=== PATIENT | male | born 1995 | race Caucasian/White ===

== ENCOUNTER 2020-04-17 15:07 | Emergency (ER) | payer MEDICAID ==
[~2020-04-17] VITALS: Ht 167.6 cm; Wt 65.9 kg
[2020-04-17 15:35] VITALS: BP 130/73
[2020-04-17] MEDS ORDERED: IBUP-1984 PO (16:10)
[2020-04-17] MEDS ORDERED: ketorolac tromethamine 15mg/ml inj. IM ONE (16:10)
== END 2020-04-17 18:32 | disposition home or self-care (01) ==
LOC: ER 15:08
DX: M25.562 Pain in left knee (principal); F17.200 Nicotine dependence, unspecified, uncomplicated; Z72.89 Other problems related to lifestyle; Z79.899 Other long term (current) drug therapy
CPT/HCPCS: 29505; 73564; 96372; 99283; J1885